=== PATIENT | female | born 1975 | race Caucasian/White ===

== ENCOUNTER 2017-03-14 22:24 | Observation (INO) | payer MEDICAID, OTHER ==
[2017-03-14] MEDS ORDERED: Sodium Chloride 0.9% 1,000 ML IV ONE (22:57)
[2017-03-14 23:06] LABS: BASO % 0.4 % (0.0-2.0); EOS # 0.2 K/uL (0.0-0.7); HEMATOCRIT 36.5 % (34.0-47.0); LYMPH # 2.8 K/uL (1.0-4.3); LYMPH % 43.2 % (20.0-40.0); MEAN CELL VOLUME 90.7 fL (81.0-99.0); MEAN CORPUSCULAR HEMOGLOBIN 30.6 pg (27.0-31.0); MEAN CORPUSCULAR HGB CONC 33.8 g/dL (33.0-37.0); MEAN PLATELET VOLUME 9.2 fL (7.2-11.7); MONO # 0.5 K/uL (0.0-0.8); MONO % 7.7 % (0.0-10.0); RED CELL DISTRIBUTION WIDTH 12.7 % (11.5-14.5); WHITE BLOOD COUNT 6.4 K/uL (4.8-10.8)
[2017-03-14 23:16] LABS: CHLORIDE 102 mmol/L (98-107); POTASSIUM 3.8 mmol/L (3.6-5.2); SODIUM 139 mmol/L (132-148)
[2017-03-14 23:18] LABS: ALB/GLOB RATIO 1.1 (1.0-2.1); ALKALINE PHOSPHATASE 60 U/L (38-126); ALT/SGPT 29 U/L (9-52); AST/SGOT 22 U/L (14-36); BILIRUBIN,TOTAL 0.7 mg/dL (0.2-1.3); BLOOD UREA NITROGEN 13 mg/dL (7-17); CARBON DIOXIDE 23 mmol/L (22-30); GFR AFRICAN-AMERICAN > 60; GLUCOSE,RANDOM 92 mg/dL (65-105); TOTAL PROTEIN 7.7 g/dL (6.3-8.3)
[2017-03-14 23:19] LABS: CALCIUM 9.5 mg/dl (8.6-10.4); MAGNESIUM 1.9 mg/dL (1.6-2.3)
[2017-03-14] MEDS ORDERED: Sodium Chloride 0.9% 1,000 ML ONE (23:24)
[2017-03-14 23:45] LABS: PARTIAL THROMBOPLASTIN TIME 32 SECONDS (21-34)
--- NOTE | 2017-03-15 00:44 | C.PDOC ---
Time Seen by Provider: 03/14/17 22:44 Chief Complaint (Nursing): Headache Past Medical History Vital Signs: Last Vital Signs Temp 98.7 F 03/14/17 22:31 Pulse 83 03/14/17 22:31 Resp 14 03/14/17 22:31 BP 141/99 H 03/14/17 22:31 Pulse Ox 99 03/14/17 22:31 - Medical History PMH: Gastritis, Migraine Family History: States: Unknown Family Hx - Social History Hx Tobacco Use: No Hx Alcohol Use: No Hx Substance Use: No - Immunization History Hx Tetanus Toxoid Vaccination: No Hx Influenza Vaccination: No Hx Pneumococcal Vaccination: No ED Course And Treatment - Laboratory Results Result Diagrams: 03/14/17 23:03 03/14/17 23:03 O2 Sat by Pulse Oximetry: 99 Disposition - Disposition Forms: [employer] [facility] ([place])
--- NOTE | 2017-03-15 00:47 | C.PDOC ---
History Of Present Illness Pt has had a headache since yesterday. Tonight, she passed out while at home and a family member performed CPR. Upon EMS arrival the patient was awake. Time Seen by Provider: 03/14/17 22:44 Chief Complaint (Nursing): Syncope History Per: Patient, EMS, Family, [facility] History/Exam Limitations: language barrier Onset/Duration Of Symptoms: Sudden Onset (Just CLEAN UP HELPER BANQUET) Current Symptoms Are (Timing): Better Number Of Syncopal Episodes: 1 Seizure Or Post-ictal Symptoms: None. denies: Generalized Seizure Activity, Incontinent Of Urine, Bit Tongue Fall Associated With With Symptoms: No Injury As Result Of Fall Severity: Moderate Additional History Per: Prior Records - Symptoms Of CVA Recent Head Trauma: No Past Medical History Reviewed: Historical Data, Nursing Documentation, Vital Signs Vital Signs: Last Vital Signs Temp 98.7 F 03/14/17 22:31 Pulse 83 03/14/17 22:31 Resp 14 03/14/17 22:31 BP 141/99 H 03/14/17 22:31 Pulse Ox 99 03/14/17 22:31 - Medical History PMH: Gastritis, Migraine Other Surgeries: Hysterectomy Family History: States: Unknown Family Hx - Social History Hx Tobacco Use: No Hx Alcohol Use: No Hx Substance Use: No - Immunization History Hx Tetanus Toxoid Vaccination: No Hx Influenza Vaccination: No Hx Pneumococcal Vaccination: No Review Of Systems Except As Marked, All Systems Reviewed And Found Negative. Constitutional: Negative for: Fever Cardiovascular: Positive for: Chest Pain Respiratory: Negative for: Shortness of Breath, Hemoptysis Gastrointestinal: Positive for: Nausea. Negative for: Vomiting, Abdominal Pain , Diarrhea Musculoskeletal: Positive for: Neck Pain Skin: Negative for: Rash Neurological: Positive for: Headache. Negative for: Weakness, Numbness, Seizures Physical Exam - Physical Exam Appears: Non-toxic, No Acute Distress Skin: Normal Color, Warm, Dry, No Rash Head: Atraumatic, Normacephalic Eye(s): bilateral: Normal Inspection, PERRL, EOMI Neck: Normal ROM, Supple Chest: Symmetrical, No Deformity, Tenderness (left breast area) Cardiovascular: Rhythm Regular Respiratory: Normal Breath Sounds, No Accessory Muscle Use Gastrointestinal/Abdominal: Soft, No Tenderness Back: No CVA Tenderness Extremity: Normal ROM, No Pedal Edema, No Calf Tenderness Neurological/Psych: Oriented x3, Normal Speech, Normal Cognition, Normal Motor, Normal Sensation ED Course And Treatment - Laboratory Results Result Diagrams: 03/14/17 23:03 03/14/17 23:03 Lab Interpretation: No Acute Changes ECG: Interpreted By Me, Viewed By Me ECG Rhythm: Sinus Rhythm, Nonspecific Changes ECG Interpretation: No Acute Changes Rate From EC O2 Sat by Pulse Oximetry: 99 Pulse Ox Interpretation: Normal - Radiology CXR: Interpreted by Me, Viewed By Me CXR Interpretation: Yes: No Acute Disease - CT Scan/US CT head Other Rad Studies (CT/US): Read By Radiologist, Radiology Report Reviewed CT/US Interpretation: No evidence of acute intracranial pathology. Progress - Interventions Interventions:: Observation, Intravenous fluid - Medications Administered Oral: Acetaminophen Intravenous: Antiemetic - Data Reviewed Data Reviewed: Lab, Diagnostic imaging, EKG, Old records - Patient Status Patient status: Mostly improved - Continuity of Care Discussed patient case with:: Patient, Family-HIPPA compliant, ED Nurse, On- call PMD-pt unassigned Disposition Discussed With DrPerry: Ted Hansen Comment: He accepted pt on hospitalist service. Doctor Will See Patient In The: Hospital Counseled Patient/Family Regarding: Studies Performed, Diagnosis - Disposition Disposition: HOSPITALIZED Disposition Time: 00:50 Condition: IMPROVED - Clinical Impression Clinical Impression: Syncope, Headache
[2017-03-15] MEDS ORDERED: Apap-Butalbital-Caffeine 325-50-40mg Tab PO STA (03:13)
--- NOTE | 2017-03-15 03:22 | CP.PCM.HP ---
<Jany Rose E - Last Filed: 03/15/17 09:25> History of Present Illness - History of Present Illness History of Present Illness: CC: Headache and Syncope HPI: Patient is a 41 year old female with past medical history of peptic ulcer, chronic migraine, uterine fibroids and left breast cyst who presents to the ED via EMS with complaints of intractable headache and syncope episode. Patient reports that her migraine started yesterday morning and progressively worsened through out the day at work. Patient states that her migraine is a10/10 that is localized to her left eye, left frontal and temporal region and extending to back of her head, with radiation to the left side of her neck took advil, which provided no relief. Patient states that after getting home from work she went to bed but shortly after she was short of breath and then had a syncope episode. Patient stated that she awoke to her niece giving her CPR and EMS was called. Patient stated that she was confused after her syncope episode but then returned to baseline; patient is unsure how long the episode lasted for. In addition, patient reports that she has an loan inspector during her stay in [place], who told her that her eye glasses prescription was too strong, which could be contributing to her migraine but she has since been fine with her new prescription. Patient states that her last migraine episode occurred a month ago. Patient admits to nausea, SOB, left eye blurry vision, syncope but denies fever, chills, diaphoresis, chest pain, palpitation, vomiting. PMD: In [place] PMHx: Uterine fibroids, left breast cyst, peptic ulcer, chronic migraine PSHx: , hysterectomy FHx: - Father: HTN, Heart murmur. at age 64 as a result of thrombosis -Mother: HTN, CHF, Heart murmur Medications: Vitamin E for breast cyst ( as per PMD in [place]) Allergies: NKDA Social History: Lives with mother and 3 daughters. Works as a steamstress in a factory, but denies tobacco, ETOH and illicit drug use Present on Admission - Present on Admission Any Indicators Present on Admission: No Review of Systems - Constitutional Constitutional: Headache. absent: Chills, Fever, Night Sweats - EENT Eyes: Blurred Vision Ears: Dizziness Nose/Mouth/Throat: Neck Pain - Cardiovascular Cardiovascular: Syncope. absent: Chest Pain, Diaphoresis, Dyspnea, Palpitations , Radiating Pain - Respiratory Respiratory: absent: Dyspnea - Gastrointestinal Gastrointestinal: Nausea. absent: Abdominal Pain, Change in Bowel Habits, Constipation, Diarrhea, Vomiting - Genitourinary Genitourinary: absent: Dysuria, Pyuria - Musculoskeletal Musculoskeletal: absent: Numbness, Stiffness, Tingling - Integumentary Integumentary: Photosensitivity - Neurological Neurological: Dizziness, Headaches. absent: Numbness, Tingling - Endocrine Endocrine: absent: Excessive Sweating, Fatigue, Palpitations Past Patient History - Past Social History Smoking Status: Never Smoked - NEUROLOGICAL Hx Migraine: Yes - RENAL Hx Kidney Stones: Yes - MUSCULOSKELETAL/RHEUMATOLOGICAL Hx Falls: No - GASTROINTESTINAL Hx Constipation: Yes Hx Gastritis: Yes - PSYCHIATRIC Hx Substance Use: No - SURGICAL HISTORY Hx Section: Yes (x 3) Hx Hysterectomy: Yes (2016) - ANESTHESIA Hx Anesthesia: Yes Hx Anesthesia Reactions: Yes (itchiness) Hx Malignant Hyperthermia: No Meds Allergies/Adverse Reactions: Allergies Allergy/AdvReac Type Severity Reaction Status Date / Time No Known Allergies Allergy Verified 03/14/17 22:39 Physical Exam - Constitutional Appears: No Acute Distress - Head Exam Head Exam: ATRAUMATIC, NORMAL INSPECTION - Eye Exam Eye Exam: EOMI, Normal appearance, PERRL Pupil Exam: NORMAL ACCOMODATION, PERRL - ENT Exam ENT Exam: Mucous Membranes Moist, Normal Exam - Respiratory Exam Respiratory Exam: Clear to Auscultation Bilateral, NORMAL BREATHING PATTERN - Cardiovascular Exam Cardiovascular Exam: REGULAR RHYTHM, +S1, +S2 - GI/Abdominal Exam GI & Abdominal Exam: Normal Bowel Sounds, Soft - Extremities Exam Extremities exam: Positive for: normal inspection. Negative for: calf tenderness, pedal edema, tenderness - Neurological Exam Neurological exam: Alert, CN II-XII Intact, Oriented x3, Reflexes Normal Additional comments: +5/5 UE AND LE Strength - Psychiatric Exam Psychiatric exam: Normal Affect, Normal Mood Additional comments: Negative for kernig and brudzinski sign - Skin Skin Exam: Dry, Normal Color, Warm Results - Vital Signs Recent Vital Signs: Last Vital Signs Temp 98.4 F 03/15/17 01:42 Pulse 68 03/15/17 01:42 Resp 18 03/15/17 01:42 BP 134/82 03/15/17 01:42 Pulse Ox 97 03/15/17 01:42 - Labs Result Diagrams: 03/14/17 23:03 03/14/17 23:03 Assessment & Plan (1) Chronic migraine Assessment and Plan: Neurology consult ( Dr. Montoya)----> Help appreciated * F/u recommendation Medication: Fioricet 1tab PO Q4 PRN Zofran 4mg IV Q6 PRN NS 2 100mls/hr Imaging: Head CT: Normal CT of the Head. NO INTRACRANIAL MASS, HEMORRHAGE OR EVIDENCE OF ACUTE INFARCT Status: Acute (2) History of peptic ulcer Assessment and Plan: Medication: * Pepcid 20mg PO BID Status: Acute (3) Prophylactic measure Assessment and Plan: Ambulating SCDs ( If needed) Protonix 20mg PO BID Status: Acute <Ted Hansen P - Last Filed: 03/25/17 19:32> Results - Vital Signs Recent Vital Signs: Last Vital Signs Temp 98.4 F 03/16/17 15:25 Pulse 81 03/16/17 15:25 Resp 18 03/16/17 15:25 BP 130/84 03/16/17 15:25 Pulse Ox 96 03/16/17 15:25 - Labs Result Diagrams: 03/16/17 06:57 03/16/17 06:57 Attending/Attestation - Attestation I have personally seen and examined this patient.: Yes I have fully participated in the care of the patient.: Yes I have reviewed all pertinent clinical information: Yes
[2017-03-15] MEDS: Sodium Chloride 0.9% 1,000 ML IV SCH ×4 (04:03→23:30)
--- NOTE | 2017-03-15 08:27 | CT ---
PROCEDURE: CT HEAD WITHOUT CONTRAST. HISTORY: Headache COMPARISON: None available. TECHNIQUE: Axial computed tomography images were obtained through the head/brain without intravenous contrast. Radiation dose: Total exam DLP = 786.91 mGy-cm. This CT exam was performed using one or more of the following dose reduction techniques: Automated exposure control, adjustment of the mA and/or kV according to patient size, and/or use of iterative reconstruction technique. FINDINGS: HEMORRHAGE: No intracranial hemorrhage. BRAIN: No mass effect or edema. No atrophy or chronic microvascular ischemic changes. VENTRICLES: Unremarkable. No hydrocephalus. CALVARIUM: Unremarkable. PARANASAL SINUSES: Unremarkable as visualized. No significant inflammatory changes. MASTOID AIR CELLS: Unremarkable as visualized. No inflammatory changes. OTHER FINDINGS: None. IMPRESSION: Normal CT of the Head. NO INTRACRANIAL MASS, HEMORRHAGE OR EVIDENCE OF ACUTE INFARCT. Preliminary interpretation of this examination was reported by [facility] at 12:31 a.m. on 03/15/2017. There is concurrence of this report with the preliminary interpretation.
[2017-03-15] MEDS: Apap-Butalbital-Caffeine 325-50-40mg Tab PO PRN (09:04)
[2017-03-15] MEDS ORDERED: Pneumococcal 23-Valent Vaccine IM ONE (10:00)
--- NOTE | 2017-03-15 11:17 | CP.PCM.PN ---
<Lizbeth Ruiz MindyPerry - Last Filed: 03/15/17 15:33> Subjective - Date & Time of Evaluation Date of Evaluation: 03/15/17 Time of Evaluation: 09:00 - Subjective Subjective: Medicine Progress Note: Patient was seen and examined at bedside in the AM. Patient states she does have a history of migraines however yesterday it became worse. Patient states she felt such a bad headache that she passed out and her nephew found her and called the ambulance. Patient states her current head pain is a 5/10 and it is located in the left side of her head to her left shoulder and her left eye. Patient states when her head pain becomes intense she feels like her vision becomes blurry. Patient also states she was recently diagnosed with a left breast cyst in [place] and is being followed by her traffic observer there. She also states her breast cyst does give her pain that sometimes causes her migraines to start. Patient states when she does have a migraine she does get nauseated and light does also bother her. Patient currently denies nausea, vomiting, chest pain, palpitations, dizziness, lightheadedness or any other complaints at this time. Objective - Vital Signs/Intake and Output Vital Signs (last 24 hours): Temp Pulse Resp BP Pulse Ox 98.4 F 68 17 116/76 97 03/15/17 07:30 03/15/17 07:30 03/15/17 07:30 03/15/17 07:30 03/15/17 07:30 Intake and Output: 03/15/17 03/15/17 06:59 18:59 Intake Total 550 Balance 550 - Medications Medications: Current Medications Acetaminophen/Butalbital/Caffeine (Fioricet) 1 tab PO Q4 PRN PRN Reason: Headache Last Admin: 03/15/17 09:04 Dose: 1 tab Famotidine (Pepcid) 20 mg PO BID WILL Last Admin: 03/15/17 11:11 Dose: 20 mg Sodium Chloride (Sodium Chloride 0.9%) 1,000 mls @ 100 mls/hr IV .Q10H WILL Last Admin: 03/15/17 04:03 Dose: 100 mls/hr Ondansetron HCl (Zofran Inj) 4 mg IVP Q6 PRN PRN Reason: Nausea/Vomiting Last Admin: 03/15/17 04:04 Dose: 4 mg - Labs Labs: PT 11.1 SECONDS (9.7-12.2) 03/14/17 23:03 INR 1.0 03/14/17 23:03 APTT 32 SECONDS (21-34) 03/14/17 23:03 - Constitutional Appears: Well, Non-toxic, No Acute Distress - Head Exam Head Exam: ATRAUMATIC, NORMOCEPHALIC. absent: NORMAL INSPECTION (tenderness to the left parietal part of the head) - Eye Exam Eye Exam: EOMI, Normal appearance, PERRL Pupil Exam: NORMAL ACCOMODATION, PERRL - ENT Exam ENT Exam: Mucous Membranes Moist - Neck Exam Neck Exam: Full ROM, Normal Inspection, Tenderness (muscle tenderness to the left side of the neck radiating to her left shoulder) - Respiratory Exam Respiratory Exam: Clear to Ausculation Bilateral, NORMAL BREATHING PATTERN. absent: Rales, Rhonchi, Wheezes, Respiratory Distress, Stridor - Cardiovascular Exam Cardiovascular Exam: REGULAR RHYTHM, RRR, +S1, +S2 - GI/Abdominal Exam GI & Abdominal Exam: Soft, Normal Bowel Sounds. absent: Tenderness - Extremities Exam Extremities Exam: Full ROM, Normal Inspection. absent: Pedal Edema, Tenderness Additional comments: Upper and Lower extremities muscle strength 5/5 - Neurological Exam Neurological Exam: Alert, Awake, CN II-XII Intact, Oriented x3 - Psychiatric Exam Psychiatric exam: Normal Affect, Normal Mood - Skin Skin Exam: Normal Color, Warm Assessment and Plan - Assessment and Plan (Free Text) Plan: 1.) Syncope Episode - f/u carotid doppler - f/u ECHO - Neurology consult: Dr. Montoya --> help appreciated 2.) History of chronic migraine Neurology consult: Dr. Montoya --> Help appreciated - Fioricet 1tab PO Q4 PRN - Zofran 4mg IV Q6 PRN - NS 2 100mls/hr - Head CT (03/14/17): Normal CT of the Head. NO INTRACRANIAL MASS, HEMORRHAGE OR EVIDENCE OF ACUTE INFARCT 3.) History of peptic ulcer Medication: * Pepcid 20mg PO BID 4.) Prophylactic measure Ambulating SCDs ( If needed) Protonix 20mg PO BID Case discussed with Dr. Lanny Ruiz PGY-1 <Miquel Ca - Last Filed: 03/16/17 14:42> Objective - Vital Signs/Intake and Output Vital Signs (last 24 hours): Temp Pulse Resp BP Pulse Ox 98.2 F 70 17 145/84 98 03/16/17 07:35 03/16/17 07:35 03/16/17 07:35 03/16/17 07:35 03/16/17 07:35 Intake and Output: 03/16/17 03/16/17 06:59 18:59 Intake Total 2260 480 Balance 2260 480 - Medications Medications: Current Medications Acetaminophen/Butalbital/Caffeine (Fioricet) 1 tab PO Q4 PRN PRN Reason: Headache Last Admin: 03/15/17 09:04 Dose: 1 tab Famotidine (Pepcid) 20 mg PO BID WILL Last Admin: 03/16/17 09:06 Dose: 20 mg Sodium Chloride (Sodium Chloride 0.9%) 1,000 mls @ 100 mls/hr IV .Q10H WILL Last Admin: 03/16/17 06:56 Dose: 100 mls/hr Ondansetron HCl (Zofran Inj) 4 mg IVP Q6 PRN PRN Reason: Nausea/Vomiting Last Admin: 03/15/17 04:04 Dose: 4 mg - Labs Labs: 03/16/17 06:57 03/16/17 06:57 PT 11.1 SECONDS (9.7-12.2) 03/14/17 23:03 INR 1.0 03/14/17 23:03 APTT 32 SECONDS (21-34) 03/14/17 23:03 Attending/Attestation - Attestation I have personally seen and examined this patient.: Yes I have fully participated in the care of the patient.: Yes I have reviewed all pertinent clinical information, including history, physical exam and plan: Yes Notes (Text): 03/16/17 14:42 Patient was seen and examined at bedside with the resident Doesn't complain of any more dizziness Neurological workup is in progress I discussed the plan of care with the resident and agree with the assessment and plan documented.
--- NOTE | 2017-03-15 13:38 | RAD ---
HISTORY: Chest pain COMPARISON: Chest x-ray performed 10/04/14 TECHNIQUE: Chest, one view. FINDINGS: Examination limited by habitus. LUNGS: No focal consolidation. Stable appearing nodular opacity in the right upper lobe may be related to costochondral cartilage rather than pulmonary nodule. Probable calcified granulomas. Please note that chest x-ray has limited sensitivity for the detection of pulmonary masses. PLEURA: No significant pleural effusion identified. No definite pneumothorax . CARDIOVASCULAR: Heart size appears within normal limits. OSSEOUS STRUCTURES: Mild degenerative changes. VISUALIZED UPPER ABDOMEN: Unremarkable. OTHER FINDINGS: None. IMPRESSION: No acute findings. Stable appearing nodular opacity in the right upper lobe as above. Additional scattered probable calcified granulomas.
--- NOTE | 2017-03-15 16:30 | CP.PCM.CON ---
History of Present Illness - History of Present Illness History of Present Illness: Mrs. Blayne Skinner is a 41-year-old woman with a past medical history of peptic ulcer, chronic migraine, uterine fibroids, who has been suffering from an intractable migraine for the last two days and states that it started on the left side of her buddhist, is associated with photophobia, nausea, is throbbing in quality and 10/10 in severity. Yesterday, she had a syncopal episode during which she felt light-headed and nauseous. When she woke up, she was slightly confused, but then returned to baseline. Today, she said her headache is feeling better, but not gone. She denied nausea, vomiting, but did have photophobia. Review of Systems - Review of Systems All systems: reviewed and no additional remarkable complaints except Past Patient History - Past Social History Smoking Status: Never Smoked - NEUROLOGICAL Hx Migraine: Yes - RENAL Hx Kidney Stones: Yes - MUSCULOSKELETAL/RHEUMATOLOGICAL Hx Falls: No - GASTROINTESTINAL Hx Constipation: Yes Hx Gastritis: Yes - PSYCHIATRIC Hx Substance Use: No - SURGICAL HISTORY Hx Section: Yes (x 3) Hx Hysterectomy: Yes (2016) - ANESTHESIA Hx Anesthesia: Yes Hx Anesthesia Reactions: Yes (itchiness) Hx Malignant Hyperthermia: No Meds Allergies/Adverse Reactions: Allergies Allergy/AdvReac Type Severity Reaction Status Date / Time No Known Allergies Allergy Verified 03/14/17 22:39 - Medications Medications: Current Medications Acetaminophen/Butalbital/Caffeine (Fioricet) 1 tab PO Q4 PRN PRN Reason: Headache Last Admin: 03/15/17 09:04 Dose: 1 tab Famotidine (Pepcid) 20 mg PO BID [facility] Last Admin: 03/15/17 11:11 Dose: 20 mg Sodium Chloride (Sodium Chloride 0.9%) 1,000 mls @ 100 mls/hr IV .Q10H [facility] Last Admin: 03/15/17 15:02 Dose: 100 mls/hr Magnesium Sulfate/Dextrose (Magnesium Sulfate 1 Gm/100 Ml D5w) 1 gm in 100 mls @ 300 mls/hr IVPB Q30M [facility] Stop: 03/15/17 17:04 Ondansetron HCl (Zofran Inj) 4 mg IVP Q6 PRN PRN Reason: Nausea/Vomiting Last Admin: 03/15/17 04:04 Dose: 4 mg Physical Exam - Constitutional Appears: Well - Head Exam Head Exam: ATRAUMATIC, NORMAL INSPECTION, NORMOCEPHALIC - Eye Exam Eye Exam: EOMI, Normal appearance, PERRL - ENT Exam ENT Exam: Mucous Membranes Moist, Normal Exam - Neck Exam Neck exam: Positive for: Normal Inspection - Respiratory Exam Respiratory Exam: Clear to Auscultation Bilateral, NORMAL BREATHING PATTERN - Cardiovascular Exam Cardiovascular Exam: REGULAR RHYTHM, +S1, +S2 - GI/Abdominal Exam GI & Abdominal Exam: Normal Bowel Sounds, Soft. absent: Tenderness - Rectal Exam Rectal Exam: Deferred - Extremities Exam Extremities exam: Positive for: normal inspection - Back Exam Back exam: NORMAL INSPECTION - Neurological Exam Neurological exam: Alert, CN II-XII Intact, Normal Gait, Oriented x3, Reflexes Normal - Expanded Neurological Exam Expanded Patient oriented to: person, place, time Cranial nerves: EOM's Intact: Normal, Facial Sensation: Normal, Nystagmus: Normal Ataxia: No Cerebellar Function: Finger to Nose: Normal, Heel to Belcher: Normal Upper motor neuron: Babinski Sign: Normal Sensory exam: Lower Extremity 2 Point Discrimination: Normal, Lower Extremity Light Touch: Normal, Lower Extremity Pin Prick: Normal, Lower Extremity Temperature: Normal, Upper Extremity 2 Point Discrimination: Normal, Upper Extremity Light Touch: Normal, Upper Extremity Pin Prick: Normal, Upper Extremity Temperature: Normal Neuro motor strength exam: Left Upper Extremity: 5, Right Upper Extremity: 5, Left Lower Extremity: 5, Right Lower Extremity: 5 DTR: Achilles Tendon Left: 2+, Achilles Tendon Right: 2+, Bicep Left: 2+, Bicep Right: 2+, Brachioradialis Left: 2+, Brachioradialis Right: 2+, Patellar Left: 2 +, Patellar Right: 2+, Tricep Left: 2+, Tricep Right: 2+ - Psychiatric Exam Psychiatric exam: Normal Affect, Normal Mood - Skin Skin Exam: Dry, Intact, Normal Color, Warm Results - Vital Signs Recent Vital Signs: Last Vital Signs Temp 98.1 F 03/15/17 16:00 Pulse 73 03/15/17 16:00 Resp 18 03/15/17 16:00 BP 111/74 03/15/17 16:00 Pulse Ox 98 03/15/17 16:00 - Labs Result Diagrams: 03/14/17 23:03 03/14/17 23:03 - Imaging and Cardiology CT scan - head Status: Image reviewed by me, Report reviewed by me (Normal.) Assessment & Plan (1) Chronic migraine Assessment and Plan: The patient does not take any medications at home; however the frequency of the migraines is enough that she should be placed on some prophylaxis after we treat the acute phase. For now, will start Magnesium Sulfate 2 grams IV ONCE, Decadron 10 mg IV ONCE, and Depakote 500 mg IV ONCE. Will then continue Magnesium Oxide 400 mg BID. For work-up, will order MRI of the brain with and without contrast for further evaluation. So far carotid dopplers are normal. Will follow echocardiogram results. Will also order MRA of the head/neck to evaluate her cerebral vasculature to rule out VBI as the cause of syncope. If this is all normal, she most likely has complicated migraine, and may have a vestibular component. Thank you. Status: Acute
[2017-03-15] MEDS ORDERED: Valproate 500 MG in Sodium Chloride 0.9% 100 ML IVPB ONE (17:00)
[2017-03-15] MEDS ORDERED: Gadodiamide 287 MG/ML VIAL (15ML) IV ONE (18:15)
[2017-03-15] MEDS: Magnesium Sulfate 1 gm in D5W 1 GM/100 ML BAG IVPB SCH ×2 (18:49→19:20)
--- NOTE | 2017-03-15 20:07 | CARD ---
APPROVED REPORT EXAM: Two-dimensional and M-mode echocardiogram with Doppler and color Doppler. Other Information Quality : GoodRhythm : NSR INDICATION Chest Pain Syncope 2D DIMENSIONS IVSd0.7 (0.7-1.1cm)LVDd4.3 (3.9-5.9cm) PWd0.8 (0.7-1.1cm)LVDs2.8 (2.5-4.0cm) FS (%) 35.3 %LVEF (%)64.9 (>50%) M-Mode DIMENSIONS RVDd2.44 (2.1-3.2cm)Left Atrium (MM)3.22 (2.5-4.0cm) IVSd1.01 (0.7-1.1cm)Aortic Root2.86 (2.2-3.7cm) LVDd4.52 (4.0-5.6cm)Aortic Cusp Exc.1.92 (1.5-2.0cm) PWd0.75 (0.7-1.1cm)FS (%) 46 % LVDs2.44 (2.0-3.8cm)LVEF (%)78 (>50%) Mitral Valve MV E Pfjbtbhw90.5cm/sMV A Spxtkylo18.0cm/sE/A ratio1.7 TDI E/Lateral E'0.0E/Medial E'0.0 Tricuspid Valve TR Peak Gvmqbkug925md/sTR Peak Gr.[id number] LEFT VENTRICLE The left ventricle is normal size. There is normal left ventricular wall thickness. The left ventricular function is normal. The left ventricular ejection fraction is within the normal range. About60%. No regional wall motion abnormalities noted. The left ventricular diastolic function is normal. No left ventricle thrombus noted on this study. There is no ventricular septal defect visualized. There is no left ventricular aneurysm. There is no mass noted in the left ventricle. RIGHT VENTRICLE The right ventricle is normal size. There is normal right ventricular wall thickness. The right ventricular systolic function is normal. ATRIA The left atrium size is normal. The right atrium size is normal. The interatrial septum is intact with no evidence for an atrial septal defect. AORTIC VALVE The aortic valve is normal in structure and function. No aortic regurgitation is present. There is no aortic valvular stenosis. There is no aortic valvular vegetation. MITRAL VALVE The mitral valve is normal in structure and function. There is no evidence of mitral valve prolapse. There is no mitral valve stenosis. There is trace mitral valve regurgitation noted. TRICUSPID VALVE The tricuspid valve is normal in structure and function. There is no tricuspid valve regurgitation noted. There is no tricuspid valve prolapse or vegetation. There is no tricuspid valve stenosis. PULMONIC VALVE The pulmonary valve is normal in structure and function. There is no pulmonic valvular regurgitation. There is no pulmonic valvular stenosis. GREAT VESSELS The aortic root is normal in size. The ascending aorta is normal in size. The pulmonary artery is normal. The IVC is normal in size and collapses >50% with inspiration. PERICARDIAL EFFUSION The pericardium appears normal. There is no pleural effusion. <Conclusion> Normal Study
[2017-03-16] MEDS: Sodium Chloride 0.9% 1,000 ML IV SCH (06:56)
[2017-03-16 07:25] LABS: BASO % 0.1 % (0.0-2.0); HEMATOCRIT 37.8 % (34.0-47.0); LYMPH # 0.9 K/uL (1.0-4.3); LYMPH % 11.6 % (20.0-40.0); MEAN CELL VOLUME 90.9 fL (81.0-99.0); MEAN CORPUSCULAR HEMOGLOBIN 30.6 pg (27.0-31.0); MEAN CORPUSCULAR HGB CONC 33.7 g/dL (33.0-37.0); MEAN PLATELET VOLUME 9.3 fL (7.2-11.7); MONO # 0.1 K/uL (0.0-0.8); MONO % 1.4 % (0.0-10.0); NRBC % 0.1 % (0.0-2.0); RED CELL DISTRIBUTION WIDTH 12.7 % (11.5-14.5)
[2017-03-16 07:30] LABS: CHLORIDE 106 mmol/L (98-107); POTASSIUM 4.2 mmol/L (3.6-5.2); SODIUM 140 mmol/L (132-148)
[2017-03-16 07:32] LABS: AST/SGOT 20 U/L (14-36); BILIRUBIN,TOTAL 0.6 mg/dL (0.2-1.3); CARBON DIOXIDE 21 mmol/L (22-30); GFR AFRICAN-AMERICAN > 60
[2017-03-16 07:33] LABS: ALKALINE PHOSPHATASE 53 U/L (38-126); ALT/SGPT 25 U/L (9-52); BLOOD UREA NITROGEN 12 mg/dL (7-17); CALCIUM 8.8 mg/dl (8.6-10.4); GLUCOSE,RANDOM 120 mg/dL (65-105); PHOSPHOROUS 2.5 mg/dL (2.5-4.5); TOTAL PROTEIN 7.5 g/dL (6.3-8.3)
[2017-03-16 07:34] LABS: MAGNESIUM 2.1 mg/dL (1.6-2.3)
--- NOTE | 2017-03-16 07:50 | CP.PCM.PN ---
Objective - Vital Signs/Intake and Output Vital Signs (last 24 hours): Temp Pulse Resp BP Pulse Ox 97.8 F 64 20 112/73 97 03/15/17 23:25 03/16/17 00:16 03/15/17 23:25 03/15/17 23:25 03/15/17 23:25 Intake and Output: 03/16/17 03/16/17 06:59 18:59 Intake Total 2260 Balance 2260 - Medications Medications: Current Medications Acetaminophen/Butalbital/Caffeine (Fioricet) 1 tab PO Q4 PRN PRN Reason: Headache Last Admin: 03/15/17 09:04 Dose: 1 tab Famotidine (Pepcid) 20 mg PO BID WILL Last Admin: 03/15/17 18:49 Dose: 20 mg Sodium Chloride (Sodium Chloride 0.9%) 1,000 mls @ 100 mls/hr IV .Q10H WILL Last Admin: 03/16/17 06:56 Dose: 100 mls/hr Ondansetron HCl (Zofran Inj) 4 mg IVP Q6 PRN PRN Reason: Nausea/Vomiting Last Admin: 03/15/17 04:04 Dose: 4 mg - Labs Labs: 03/16/17 06:57 03/16/17 06:57 PT 11.1 SECONDS (9.7-12.2) 03/14/17 23:03 INR 1.0 03/14/17 23:03 APTT 32 SECONDS (21-34) 03/14/17 23:03
[2017-03-16] MEDS ORDERED: Pneumococcal 23-Valent Vaccine IM ONE (10:00)
--- NOTE | 2017-03-16 10:35 | MRI ---
PROCEDURE: MRI BRAIN WITH AND WITHOUT CONTRAST HISTORY: migraine, AMS COMPARISON: None. TECHNIQUE: Multiplanar, multisequence MR images of the brain were obtained with and without intravenous contrast enhancement. FINDINGS: HEMORRHAGE: None DWI: No evidence of an acute or early subacute infarction. BRAIN PARENCHYMA: There multifocal predominate subcortical but also occasional centrum semiovale and optic radiation white-matter long TR signal abnormalities which are punctate in size. There effect bilateral frontal and parietal lobes bilaterally. No abnormal intracranial enhances appreciate throughout the exam including the would correspond to any of these long TR abnormalities. The corpus callosum appears normal. Brainstem and remaining posterior fossa tissue is uninvolved. Differential diagnosis is broad and could include migraine headaches. Although Lyme disease demyelination and vasculitis are not excluded as well as delete others. Note coffey matter signal abnormalities identified throughout including post gadolinium enhanced imaging. There is no suspicious extra-axial fluid collection or mass effect. Midline brain anatomy is unremarkable including the craniocervical junction. ENHANCEMENT: No abnormal intracranial enhancement. VENTRICLES: Unremarkable. No hydrocephalus. CRANIUM: Unremarkable. ORBITS: Grossly unremarkable. PARANASAL SINUSES/MASTOIDS: Clear VASCULAR SYSTEM: Skull base flow voids intact. OTHER FINDINGS: None . IMPRESSION: The examination is positive for multifocal punctate subcortical long TR hyperintensities scattered in the frontal and parietal lobes and occasionally affecting centrum semiovale white matter as well. Midline white-matter appears spared including corpus callosum. No abnormal intracranial enhancement however. Different differential diagnosis is broad. Please see discussion above.
--- NOTE | 2017-03-16 10:40 | MRI ---
PROCEDURE: Magnetic Resonance Angiography Brain HISTORY: syncope, AMS, migraine COMPARISON: None available. TECHNIQUE: 3D time of flight MR angiography of the intracranial arteries was performed. Rotating maximum intensity projection images were generated. FINDINGS: INTERNAL CEREBRAL ARTERIES: Unremarkable. The skull base, petrous, cavernous and supraclinoid segments are bilaterally widely patient. ANTERIOR CEREBRAL ARTERIES: Unremarkable. A1 and A2 segments are widely patent. Smaller distal branches unremarkable, as visualized. MIDDLE CEREBRAL ARTERIES: Unremarkable. M1 and M2 segments are widely patent. Perisylvian branches grossly symmetric. POSTERIOR CIRCULATION: Basilar Artery: Unremarkable. Distal Vertebral Arteries: Unremarkable. Posterior Cerebral Arteries: Unremarkable. Posterior Inferior Cerebellar Arteries: Not identified. ANEURYSM/ VASCULAR MALFORMATIONS: None. OTHER FINDINGS: Note, motion artifacts distort this exam somewhat, particularly reformatted datasets. IMPRESSION: Motion artifacted but grossly unremarkable MR angiography of the brain.
--- NOTE | 2017-03-16 10:43 | MRI ---
PROCEDURE: MR Angiography of the neck without contrast HISTORY: migraine, AMS, syncope COMPARISON: None available. TECHNIQUE: 3D [id number] angiography of the neck was performed. Rotating maximum intensity projection images of the cervical carotid and vertebral arteries were generated. The origins of the common carotid arteries were not visualized, which is a limitation inherent to the non-contrast time of flight technique. FINDINGS: RIGHT CAROTID ARTERIES: Common Carotid Artery: Normal. Carotid Bifurcation: Mild atherosclerotic plaque is appreciate without significant stenosis resulting. Internal Carotid Artery:Normal. External Carotid Artery (proximal branches): Normal. LEFT CAROTID ARTERIES: Common Carotid Artery: Normal. Carotid Bifurcation: Minimal atherosclerotic plaque is appreciated without significant stenosis resulting. Internal Carotid Artery:Normal. External Carotid Artery (proximal branches): Normal. VERTEBRAL ARTERIES: Right Vertebral Artery: Normal. Left Vertebral Artery: Normal. OTHER FINDINGS: None. IMPRESSION: Limited atherosclerotic plaque is identified at the right greater than left carotid bulb regions. No significant stenosis is identified in the visualized bilateral common and internal carotid arteries bilaterally.
--- NOTE | 2017-03-16 14:48 | CP.PCM.DIS ---
<Lizbeth Ruiz - Last Filed: 03/16/17 17:59> Provider - Provider Date of Admission: 03/15/17 00:51 Attending physician: Miquel Ca MD Time Spent in preparation of Discharge (in minutes): 40 Hospital Course - Lab Results Lab Results: Most Recent Lab Values WBC 8.0 K/uL (4.8-10.8) 03/16/17 06:57 RBC 4.16 Mil/uL (3.80-5.20) 03/16/17 06:57 Hgb 12.7 g/dL (11.0-16.0) 03/16/17 06:57 Hct 37.8 % (34.0-47.0) 03/16/17 06:57 MCV 90.9 fL (81.0-99.0) 03/16/17 06:57 MCH 30.6 pg (27.0-31.0) 03/16/17 06:57 MCHC 33.7 g/dL (33.0-37.0) 03/16/17 06:57 RDW 12.7 % (11.5-14.5) 03/16/17 06:57 Plt Count 275 K/uL (130-400) 03/16/17 06:57 MPV 9.3 fL (7.2-11.7) 03/16/17 06:57 Neut % (Auto) 86.9 % (50.0-75.0) H 03/16/17 06:57 Lymph % (Auto) 11.6 % (20.0-40.0) L 03/16/17 06:57 Cataño % (Auto) 1.4 % (0.0-10.0) 03/16/17 06:57 Eos % (Auto) 0.0 % (0.0-4.0) 03/16/17 06:57 Baso % (Auto) 0.1 % (0.0-2.0) 03/16/17 06:57 Neut # 6.9 K/uL (1.8-7.0) 03/16/17 06:57 Lymph # 0.9 K/uL (1.0-4.3) L 03/16/17 06:57 Cataño # 0.1 K/uL (0.0-0.8) 03/16/17 06:57 Eos # 0.0 K/uL (0.0-0.7) 03/16/17 06:57 Baso # 0.0 K/uL (0.0-0.2) 03/16/17 06:57 PT 11.1 SECONDS (9.7-12.2) 03/14/17 23:03 INR 1.0 03/14/17 23:03 APTT 32 SECONDS (21-34) 03/14/17 23:03 D-Dimer, Quantitative < 200 ng/mlDDU (0-243) 03/14/17 23:03 Sodium 140 mmol/L (132-148) 03/16/17 06:57 Potassium 4.2 mmol/L (3.6-5.2) 03/16/17 06:57 Chloride 106 mmol/L (98-107) 03/16/17 06:57 Carbon Dioxide 21 mmol/L (22-30) L 03/16/17 06:57 Anion Gap 17 (10-20) 03/16/17 06:57 BUN 12 mg/dL (7-17) 03/16/17 06:57 Creatinine 0.6 MG/DL (0.7-1.2) L 03/16/17 06:57 Est GFR ( Amer) > 60 03/16/17 06:57 Est GFR (Non-Af Amer) > 60 03/16/17 06:57 Random Glucose 120 mg/dL (65-105) H 03/16/17 06:57 Calcium 8.8 mg/dl (8.6-10.4) 03/16/17 06:57 Phosphorus 2.5 mg/dL (2.5-4.5) 03/16/17 06:57 Magnesium 2.1 mg/dL (1.6-2.3) 03/16/17 06:57 Total Bilirubin 0.6 mg/dL (0.2-1.3) 03/16/17 06:57 AST 20 U/L (14-36) 03/16/17 06:57 ALT 25 U/L (9-52) 03/16/17 06:57 Alkaline Phosphatase 53 U/L (38-126) 03/16/17 06:57 Total Creatine Kinase 96 U/L (30-135) 03/14/17 23:03 CK-MB (Mass) 0.51 ng/mL (0.0-3.38) 03/14/17 23:03 Troponin I, Quant < 0.0120 ng/mL (0.00-0.120) 03/14/17 23:03 Total Protein 7.5 g/dL (6.3-8.3) 03/16/17 06:57 Albumin 3.8 g/dL (3.5-5.0) 03/16/17 06:57 Globulin 3.7 gm/dL (2.2-3.9) 03/16/17 06:57 Albumin/Globulin Ratio 1.0 (1.0-2.1) 03/16/17 06:57 - Hospital Course Hospital Course: CC: Headache and Syncope HPI: Patient is a 41 year old female with past medical history of peptic ulcer, chronic migraine, uterine fibroids and left breast cyst who presents to the ED via EMS with complaints of intractable headache and syncope episode. Patient reports that her migraine started yesterday morning and progressively worsened through out the day at work. Patient states that her migraine is a10/10 that is localized to her left eye, left frontal and temporal region and extending to back of her head, with radiation to the left side of her neck took advil, which provided no relief. Patient states that after getting home from work she went to bed but shortly after she was short of breath and then had a syncope episode. Patient stated that she awoke to her niece giving her CPR and EMS was called. Patient stated that she was confused after her syncope episode but then returned to baseline; patient is unsure how long the episode lasted for. In addition, patient reports that she has an dock loader during her stay in [place], who told her that her eye glasses prescription was too strong, which could be contributing to her migraine but she has since been fine with her new prescription. Patient states that her last migraine episode occurred a month ago. Patient admits to nausea, SOB, left eye blurry vision, syncope but denies fever, chills, diaphoresis, chest pain, palpitation, vomiting. PMD: In [place] PMHx: Uterine fibroids, left breast cyst, peptic ulcer, chronic migraine PSHx: , hysterectomy FHx: - Father: HTN, Heart murmur. at age 64 as a result of thrombosis -Mother: HTN, CHF, Heart murmur Medications: Vitamin E for breast cyst ( as per PMD in [place]) Allergies: NKDA Social History: Lives with mother and 3 daughters. Works as a steamstress in a factory, but denies tobacco, ETOH and illicit drug use Hospital Course: 03/14/17: Patient is a 41 F Estonian Speaking reporting to the ED with syncope and headache. Chest X-ray done in Emergency Room showed no acute findings, stable nodular opacity in lung. Head CT performed and was within normal limits . 03/15/17: Patient admitted for further workup. Carotid Doppler performed and was within normal limits. Echocardiogram performed and was within normal limits showing an ejection fraction of 78%. Dr. Montoya was consulted due to patients symptoms. Brain MRI performed and showed multifocal predominate subcortical but also occasional centrum semiovale and optic radiation white-matter long TR signal abnormalities which are punctate in size. Head MRA performed and was unremarkable. Neck MRA performed and showed limited atherosclerotic plaque on right greater than left carotid blub region. Patient is stable for discharge per Dr. Ca and Dr. Montoya. Patient is to continue new medication: 400mg Magnesium Oxide BID Patient is to follow up with Dr. Bharat Roberson within 2 weeks: [address] [place], [place] [id number] [phone] Patient is to return to the Emergency Room if symptoms worsen. This is a brief summary of events. For a complete course, refer to the medical record. Discharge Exam - Head Exam Head Exam: ATRAUMATIC, NORMAL INSPECTION, NORMOCEPHALIC - Eye Exam Eye Exam: EOMI, Normal appearance, PERRL Pupil Exam: NORMAL ACCOMODATION, PERRL - ENT Exam ENT Exam: Mucous Membranes Moist - Respiratory Exam Respiratory Exam: Clear to PA & Lateral, NORMAL BREATHING PATTERN. absent: Rales, Rhonchi, Wheezes, Stridor - Cardiovascular Exam Cardiovascular Exam: REGULAR RHYTHM, RRR, +S1, +S2 - GI/Abdominal Exam GI & Abdominal Exam: Normal Bowel Sounds, Soft. absent: Tenderness - Extremities Exam Extremities exam: normal inspection - Neurological Exam Neurological exam: Alert, Oriented x3 - Psychiatric Exam Psychiatric exam: Normal Affect, Normal Mood - Skin Skin Exam: Normal Color, Warm Discharge Plan - Follow Up Plan Condition: IMPROVED Disposition: HOME/ ROUTINE Instructions: Magnesium (By mouth), Migraine Headache (DC), Syncope (DC) Additional Instructions: Patient is to continue new medication: 400mg Magnesium Oxide BID Patient is to follow up with Dr. Bharat Roberson within 2 weeks: [address] [place] [phone] Patient is to return to the Emergency Room if symptoms worsen. Referrals: Bharat Roberson MD [Staff Provider] - <Miquel Ca - Last Filed: 03/16/17 18:40> Provider - Provider Date of Admission: 03/15/17 00:51 Attending physician: Miquel Ca MD Hospital Course - Lab Results Lab Results: Most Recent Lab Values WBC 8.0 K/uL (4.8-10.8) 03/16/17 06:57 RBC 4.16 Mil/uL (3.80-5.20) 03/16/17 06:57 Hgb 12.7 g/dL (11.0-16.0) 03/16/17 06:57 Hct 37.8 % (34.0-47.0) 03/16/17 06:57 MCV 90.9 fL (81.0-99.0) 03/16/17 06:57 MCH 30.6 pg (27.0-31.0) 03/16/17 06:57 MCHC 33.7 g/dL (33.0-37.0) 03/16/17 06:57 RDW 12.7 % (11.5-14.5) 03/16/17 06:57 Plt Count 275 K/uL (130-400) 03/16/17 06:57 MPV 9.3 fL (7.2-11.7) 03/16/17 06:57 Neut % (Auto) 86.9 % (50.0-75.0) H 03/16/17 06:57 Lymph % (Auto) 11.6 % (20.0-40.0) L 03/16/17 06:57 Cataño % (Auto) 1.4 % (0.0-10.0) 03/16/17 06:57 Eos % (Auto) 0.0 % (0.0-4.0) 03/16/17 06:57 Baso % (Auto) 0.1 % (0.0-2.0) 03/16/17 06:57 Neut # 6.9 K/uL (1.8-7.0) 03/16/17 06:57 Lymph # 0.9 K/uL (1.0-4.3) L 03/16/17 06:57 Cataño # 0.1 K/uL (0.0-0.8) 03/16/17 06:57 Eos # 0.0 K/uL (0.0-0.7) 03/16/17 06:57 Baso # 0.0 K/uL (0.0-0.2) 03/16/17 06:57 PT 11.1 SECONDS (9.7-12.2) 03/14/17 23:03 INR 1.0 03/14/17 23:03 APTT 32 SECONDS (21-34) 03/14/17 23:03 D-Dimer, Quantitative < 200 ng/mlDDU (0-243) 03/14/17 23:03 Sodium 140 mmol/L (132-148) 03/16/17 06:57 Potassium 4.2 mmol/L (3.6-5.2) 03/16/17 06:57 Chloride 106 mmol/L (98-107) 03/16/17 06:57 Carbon Dioxide 21 mmol/L (22-30) L 03/16/17 06:57 Anion Gap 17 (10-20) 03/16/17 06:57 BUN 12 mg/dL (7-17) 03/16/17 06:57 Creatinine 0.6 MG/DL (0.7-1.2) L 03/16/17 06:57 Est GFR ( Amer) > 60 03/16/17 06:57 Est GFR (Non-Af Amer) > 60 03/16/17 06:57 Random Glucose 120 mg/dL (65-105) H 03/16/17 06:57 Calcium 8.8 mg/dl (8.6-10.4) 03/16/17 06:57 Phosphorus 2.5 mg/dL (2.5-4.5) 03/16/17 06:57 Magnesium 2.1 mg/dL (1.6-2.3) 03/16/17 06:57 Total Bilirubin 0.6 mg/dL (0.2-1.3) 03/16/17 06:57 AST 20 U/L (14-36) 03/16/17 06:57 ALT 25 U/L (9-52) 03/16/17 06:57 Alkaline Phosphatase 53 U/L (38-126) 03/16/17 06:57 Total Creatine Kinase 96 U/L (30-135) 03/14/17 23:03 CK-MB (Mass) 0.51 ng/mL (0.0-3.38) 03/14/17 23:03 Troponin I, Quant < 0.0120 ng/mL (0.00-0.120) 03/14/17 23:03 Total Protein 7.5 g/dL (6.3-8.3) 03/16/17 06:57 Albumin 3.8 g/dL (3.5-5.0) 03/16/17 06:57 Globulin 3.7 gm/dL (2.2-3.9) 03/16/17 06:57 Albumin/Globulin Ratio 1.0 (1.0-2.1) 03/16/17 06:57 Attending/Attestation - Attestation I have personally seen and examined this patient.: Yes I have fully participated in the care of the patient.: Yes I have reviewed all pertinent clinical information, including history, physical exam and plan: Yes Notes (Text): 03/16/17 18:40 Patient was seen and examined at bedside with the resident Patient states that she is feeling better and headache is improved Patient is cleared for discharge by neurology We'll discharge the patient home for outpatient follow-up with neurology. I agree with the discharge note by the resident
[2017-03-16 15:29] VITALS: BP 130/84; PULSE 81; RESP 18; TEMP 98.4; O2SAT 96
[2017-03-16] MEDS: Apap-Butalbital-Caffeine 325-50-40mg Tab PO PRN (16:02)
--- NOTE | 2017-03-17 15:06 | VASCLAB ---
PROCEDURE: HISTORY: syncope episode COMPARISON: None available. TECHNIQUE: Grayscale and duplex Doppler evaluation of the cervical carotid and vertebral arteries were performed. The common carotid, carotid bifurcations and cervical Internal Carotid Artery (ICA) and proximal External Carotid Artery (ECA) were evaluated. The vertebral arteries were evaluated for gross patency and flow direction. Report prepared by Luther Gupta, BS, RVT FINDINGS: RIGHT CAROTID ARTERIES: 1. Common Carotid Artery: No significant focal plaque formation of the right common carotid artery. Maximum Peak Systolic velocity: 58 cm/sec: End-diastolic velocity 21 cm/sec. 2. Carotid Bifurcation: plaque formation. Maximum Peak Systolic velocity: 57 cm/sec: End-diastolic velocity 20 cm/sec. 3. Internal Carotid Artery: Plaque description: 3.1. Proximal Segment: Peak systolic velocity 57 cm/sec: End-diastolic velocity 25 cm/sec - % stenosis 0-15% 3.2. Middle Segment: Peak systolic velocity 64 cm/sec: End-diastolic velocity 30 cm/sec - % stenosis 0-15% 3.3. Distal Segment: Peak systolic velocity 72 cm/sec: End-diastolic velocity 31 cm/sec - % stenosis 0-15% 4. External Carotid Artery: No significant focal plaque formation. Peak systolic velocity 89 cm/sec 5. ICA/CCA Ratio: 1.2 LEFT CAROTID ARTERIES: 1. Common Carotid Artery: No significant focal plaque formation of the left common carotid artery. Maximum Peak Systolic velocity: 72 cm/sec: End-diastolic velocity 25 cm/sec. 2. Carotid Bifurcation: plaque formation. Maximum Peak Systolic velocity: 59 cm/sec: End-diastolic velocity 25 cm/sec. 3. Internal Carotid Artery: Plaque description: 3.1. Proximal Segment: Peak systolic velocity 63 cm/sec: End-diastolic velocity 29 cm/sec - % stenosis 0-15% 3.2. Middle Segment: Peak systolic velocity 49 cm/sec: End-diastolic velocity 20 cm/sec - % stenosis 0-15% 3.3. Distal Segment: Peak systolic velocity 96 cm/sec: End-diastolic velocity 38 cm/sec - % stenosis 0-15% 4. External Carotid Artery: No significant focal plaque formation. Peak systolic velocity 94 cm/sec 5. ICA/CCA Ratio: 1.3 VERTEBRAL ARTERIES: 1. Right Vertebral Artery: The right vertebral artery flow direction is antegrade. 2. Left Vertebral Artery: The left vertebral artery flow direction is antegrade. OTHER FINDINGS: 1. Right Brachial Blood pressure: 140 mmHg. 2. Left Brachial Blood pressure: 142 mmHg. IMPRESSION: RIGHT: Duplex scan does not suggest hemodynamically significant stenosis of the right extracranial carotid arteries. LEFT: Duplex scan does not suggest hemodynamically significant stenosis of the left extracranial carotid arteries.
== END 2017-03-16 17:00 | disposition home or self-care (01) ==
LOC: C.ER 22:24 → C.9E 03-15 00:51 → C.6T 03-15 01:19
PROVIDERS: ADMIT Internal Medicine; ATTEND Internal Medicine
DX: G43.909 Migraine, unspecified, not intractable, without status migrainosus (principal); R55 Syncope and collapse; Z87.11 Personal history of peptic ulcer disease
CPT/HCPCS: 36415; 70450; 70544; 70547; 70553; 71010; 80053; 83735; 84100; 84484; 85025; 85378; 85610; 85730; 90732; 93306; 93880; 96360; 96374; 99285; A9579; G0009; G0378; J1100; J2405; J2765; J3475; J7040